=== PATIENT | female | born 1940 | race Caucasian/White ===

== ENCOUNTER → 2019-09-26 | Outpatient (CLI) | payer MEDICARE, BC ==
--- NOTE | 2019-09-26 11:13 | RADIOLOGY REPORT (SQ) ---
EXAM DESCRIPTION: CHEST PA/LATERAL IMAGES COMPLETED DATE/TIME: 09/26/2019 10:35 am REASON FOR STUDY: WHEEZING COMPARISON: None. EXAM PARAMETERS: NUMBER OF VIEWS: two views TECHNIQUE: Digital Frontal and Lateral radiographic views of the chest acquired. RADIATION DOSE: NA LIMITATIONS: none FINDINGS: LUNGS AND PLEURA: No opacities, masses or pneumothorax. No pleural effusion. MEDIASTINUM AND HILAR STRUCTURES: No masses or contour abnormalities. HEART AND VASCULAR STRUCTURES: Heart normal size. No evidence for failure. BONES: No acute findings. HARDWARE: None in the chest. OTHER: No other significant finding. IMPRESSION: NO SIGNIFICANT RADIOGRAPHIC FINDING IN THE CHEST. TECHNICAL DOCUMENTATION: JOB ID: [id number] 2010 [employer]- All Rights Reserved Reading location - IP/workstation name: [email or web address]
== END ==
LOC: OD 10:04
PROVIDERS: ATTEND Family Medicine
DX: R06.2 Wheezing (principal)
CPT/HCPCS: 71046

== ENCOUNTER 2019-10-11 15:28 | Inpatient (IN) | payer MEDICARE, BC ==
--- NOTE | 2019-10-11 16:26 | RADIOLOGY REPORT (SQ) ---
EXAM DESCRIPTION: HIP LEFT AP/LATERAL IMAGES COMPLETED DATE/TIME: 10/11/2019 4:03 pm REASON FOR STUDY: FALL WITH POSSIBLE DEFORMITY COMPARISON: None. NUMBER OF VIEWS: Two views. TECHNIQUE: AP pelvis and cross-table lateral view of the left hip. LIMITATIONS: None. FINDINGS: MINERALIZATION: Normal. LEFT HIP: No fracture or dislocation. No worrisome bone lesions. RIGHT HIP: No fracture or dislocation. Greater trochanteric in the is a pathic changes. No worrisom e bone lesions. PUBIS AND ISCHIUM: No fracture. PELVIS: No fracture. SACRUM: No fracture or dislocation. No worrisome bone lesions. LOWER LUMBAR SPINE: No fracture or dislocation. No worrisome bone lesions. No significant disc disea se. SOFT TISSUES: Surgical clips project over the right inguinal region. OTHER: No other significant finding. IMPRESSION: No identifiable acute osseous abnormality of the left hip. If there is persisting mac rn for occult fracture, consider CT. TECHNICAL DOCUMENTATION: JOB ID: [id number] 2010 [employer]- All Rights Reserved Reading location - IP/workstation name: [email or web address]
[2019-10-11] MEDS ORDERED: MORPHINE SULFATE 10 MG/ML INJ IV ONE ×2 (18:15→20:04)
--- NOTE | 2019-10-11 18:17 | ER Document Report ---
ED Hip Pain/Injury - General Chief Complaint: Hip Injury Stated Complaint: FALL/LEFT HIP PAIN Time Seen by Provider: 10/11/19 18:10 Mode of Arrival: Medic Information source: Patient Notes: 79-year-old woman presents to the emergency department history of a fall at home today. Apparently was assisting a moving Brie when she fell and her fell onto the mirror and the patient. She complained of pain in the left groin and hip area. She denies a loss of consciousness or head injury. EMS applied a pelvic sling and she received 100 mcg of fentanyl during the transport. Of pain medications by EMS - Related Data Allergies/Adverse Reactions: petrolatum,white [From Petroleum Jelly] Allergy (Verified 10/11/19 15:55) Past Medical History - Social History Smoking Status: Never Smoker Family History: Reviewed & Not Pertinent Patient has homicidal ideation: No Review of Systems - Review of Systems Notes: Constitutional: Negative for fever. HENT: Negative for sore throat. Eyes: Negative for visual changes. Cardiovascular: + Chest pain. Respiratory: Negative for shortness of breath. Gastrointestinal: Negative for abdominal pain, vomiting or diarrhea. Genitourinary: Negative for dysuria. Musculoskeletal: + Pain in the left inguinal region Skin: Negative for rash. Neurological: Negative for headaches, weakness or numbness. 10 point ROS negative except as marked above and in HPI. Physical Exam - Vital signs Vitals: Pulse Ox 89 L 10/11/19 15:48 - Notes Notes: PHYSICAL EXAMINATION: Physical Exam: General: Well-nourished well-developed 79-year-old woman severe pain HEENT: NC/AT, pupils equal round and reactive to light, MM moist,nares clear, oropharynx clear, airway patent Neck: supple, no adenopathy, no masses. Good range of motion Lungs: clear, no wheezing, no rales no rhonchi CVS: Regular rate and rhythm no murmur gallop or rub Abdomen: Soft, active, nontender, no masses, no hepatosplenomegaly Ext: No edema, clubbing or cyanosis. Neuro: Alert and responsive, moving all 4 extremities on command, cranial nerves intact, no focal findings Skin: Intact no open lesions, no rash PSYCH: Normal mood, normal affect. Course - Re-evaluation Re-evalutation: 10/11/19 19:41 Patient was found to have a left superior and left inferior ramus fracture, nondisplaced on the CT scan. Patient is continued to have severe pain and is received morphine and fentanyl IV. Discussed the findings with the patient and family, she is unable to tolerate moving due to severe pain., The orthopedist on-call Dr. Richardson contacted, this is a nonsurgical pelvis fracture. 10/11/19 19:54 Dr. Richardson the orthopedist is called and states even her inability to walk, and severe pain the patient should be admitted to the hospital, he will consult, patient may need to be sent to a long-term care facility for rehabilitation. - Vital Signs Vital signs: Temp Pulse Resp BP Pulse Ox 98.0 F 81 20 136/56 H 95 10/14/19 00:14 10/14/19 02:00 10/14/19 00:14 10/14/19 00:14 10/14/19 00:14 - Laboratory Result Diagrams: 10/11/19 15:48 10/13/19 12:08 Laboratory results interpreted by me: 10/11/19 10/11/19 10/12/19 15:48 18:15 01:31 Glucose 116 H Creatine Kinase CK-MB (CK-2) 5.09 H NT-Pro-B Natriuret Pep 1870 H Urine Blood SMALL H 10/12/19 10/12/19 10/12/19 01:31 07:29 07:29 Glucose Creatine Kinase 363 H 346 H CK-MB (CK-2) 4.87 H NT-Pro-B Natriuret Pep Urine Blood 10/12/19 12:45 Glucose Creatine Kinase 345 H CK-MB (CK-2) NT-Pro-B Natriuret Pep Urine Blood - Diagnostic Test Radiology reviewed: Image reviewed, Reports reviewed - X-ray left hip no fracture seen. CT abdomen and pelvis: Nondisplaced fracture of the left inferior and left superior pubic ramus CT chest: No acute intrathoracic findings, no rib fractures. Discharge - Discharge Clinical Impression: Fracture of left pelvis Qualifiers: Encounter type: initial encounter Pelvic bone location: pubis Fracture type: closed Fracture alignment: nondisplaced Qualified Code(s): S32.502A - Unspecified fracture of left pubis, initial encounter for closed fracture Fall Qualifiers: Encounter type: initial encounter Qualified Code(s): W19.XXXA - Unspecified fall, initial encounter Condition: Stable Disposition: ADMITTED INPATIENT Admitting Provider: Nathan (Hospitalist) Unit Admitted: Medical Floor
[2019-10-11 18:33] LABS: ABSOLUTE BASOPHILS # (AUTO) 0.1 10^3/uL (0.0-0.2); ABSOLUTE EOSINOPHILS # (AUTO) 0.3 10^3/uL (0.0-0.6); ABSOLUTE LYMPHOCYTES (AUTO) 2.6 10^3/uL (0.5-4.7); ABSOLUTE MONOCYTES (AUTO) 0.7 10^3/uL (0.1-1.4); ABSOLUTE NEUT (AUTO) 5.8 10^3/uL (1.7-8.2); BASOPHILS % (AUTO) 0.7 % (0-2); EOSINOPHILS % (AUTO) 2.8 % (0-6); HEMATOCRIT 38.3 % (36.0-47.0); LYMPHOCYTES % (AUTO) 27.1 % (13-45); MEAN CORPUSCULAR HEMOGLOBIN 31.2 pg (27.0-33.4); MEAN CORPUSCULAR VOLUME 92 fl (80-97); MONOCYTES % (AUTO) 7.4 % (3-13); PLATELET COUNT 268 10^3/uL (150-450); RED BLOOD COUNT 4.16 10^6/uL (3.72-5.28); RED CELL DISTRIBUTION WIDTH 13.8 % (11.5-14.0); TOTAL CELLS COUNTED % (AUTO) 100 %; WHITE BLOOD COUNT 9.4 10^3/uL (4.0-10.5)
[2019-10-11] MEDS ORDERED: FENTANYL CITRATE INJ/PF 100 MCG/2 ML AMPUL IV ONE (18:37)
[2019-10-11 18:46] LABS: ALBUMIN 3.9 g/dL (3.5-5.0); ALKALINE PHOSPHATASE 64 U/L (38-126); ASPARTATE AMINO TRANSFERASE 26 U/L (14-36); BILIRUBIN,TOTAL 0.4 mg/dL (0.2-1.3); BLOOD UREA NITROGEN 17 mg/dL (7-20); CALCIUM 9.1 mg/dL (8.4-10.2); GLUCOSE 116 mg/dL (75-110); POTASSIUM 4.1 mmol/L (3.6-5.0)
[2019-10-11 18:51] LABS: ANION GAP 5 (5-19); CARBON DIOXIDE 29 mmol/L (22-30); CHLORIDE 105 mmol/L (98-107)
[2019-10-11 19:22] LABS: APPEARANCE,URINE CLEAR; BILIRUBIN,URINE NEGATIVE (NEGATIVE); COLOR,URINE STRAW; GLUCOSE, URINE NEGATIVE (NEGATIVE); KETONES,URINE NEGATIVE (NEGATIVE); PROTEIN,URINE NEGATIVE (NEGATIVE); UROBILINOGEN,URINE NEGATIVE mg/dL (<2.0)
--- NOTE | 2019-10-11 19:27 | RADIOLOGY REPORT (SQ) ---
EXAM DESCRIPTION: CT ABD/PELVIS NO ORAL OR IV; CT CHEST WITHOUT IMAGES COMPLETED DATE/TIME: 10/11/2019 7:02 pm; 10/11/2019 7:01 pm REASON FOR STUDY: TRAUMA; Trauma COMPARISON: None. TECHNIQUE: CT scan of the chest performed without intravenous contrast using helical scanning techni que. Images reviewed with lung, soft tissue and bone windows. Reconstructed coronal and sagittal MPR images reviewed. All images stored on PACS. All CT scanners at this facility use dose modulation, iterative reconstruction, and/or weight based d osing when appropriate to reduce radiation dose to as low as reasonably achievable (ALARA). [facility]: Dose Right [facility]: CareDose [facility]: Dose Right [facility]: [place] 4D [facility]: [employer] RADIATION DOSE: mGy. LIMITATIONS: None. FINDINGS: AXILLAE: No adenopathy. CHEST WALL: No masses. No subcutaneous air. LUNGS: No focal airspace consolidation. Mild bibasilar dependent atelectasis. Few sub 4 mm pulmonar y nodules. No pneumothorax. PLEURA: No effusions. No calcifications. THYROID: No masses or significant asymmetry. HILAR AND MEDIASTINAL STRUCTURES: No identified masses or abnormal nodes. AORTA AND GREAT VESSELS: Mild calcified atherosclerotic changes of a mildly tortuous thoracic aorta. No aneurysm. HEART: No pericardial effusion. Mild aortic valvular calcification. Probable coronary stents. HARDWARE AND LIFELINES: None. BONES: No acute finding. Degenerative changes of the lower cervical spine. Surgical screw within th e right humeral head. OTHER: No other significant finding. IMPRESSION: No acute intrathoracic findings. COMPARISON: None. TECHNIQUE: CT scan of the abdomen and pelvis performed without intravenous contrast and withoutoral contrast using helical scanning technique with dynamic intravenous contrast injection. Images review ed with lung, soft tissue and bone windows. Reconstructed coronal and sagittal MPR images reviewed. All images stored on PACS. All CT scanners at this facility use dose modulation, iterative reconstruction, and/or weight based d osing when appropriate to reduce radiation dose to as low as reasonably achievable (ALARA). [facility]: Dose Right [facility]: SureCare [facility]: Dose Right [facility]: [employer] 4D [facility]: Smart [employer] RADIATION DOSE: mGy. LIMITATIONS: None. FINDINGS: LIVER: Subcentimeter hypodense focus within hepatic segment V, incompletely characterize, although likely represents a cyst. SPLEEN: Coarse splenic granuloma. Normal size. No focal lesions. PANCREAS: No masses. No significant calcifications. No adjacent inflammation or peripancreatic flui d collections. Pancreatic duct not dilated. GALLBLADDER: Nonvisualized. Likely surgically absent. ADRENAL GLANDS: No significant masses or asymmetry. RIGHT KIDNEY AND URETER: No solid masses. Focal right superior pole cortical scarring. Assessment l imited by lack of IV contrast. 5 mm left inferior pole nonobstructing nephrolith. Few additional no nobstructing punctate nephroliths. No hydronephrosis or hydroureter. LEFT KIDNEY AND URETER: No solid masses. Assessment limited by lack of IV contrast. No significant ca lcification. No hydronephrosis or hydroureter. AORTA AND VESSELS: Heavy calcified and non calcified atherosclerotic changes of the abdominal aorta w ithout aneurysmal dilatation. RETROPERITONEUM: No retroperitoneal adenopathy, hemorrhage or masses. APPENDIX: Not visualized. LARGE AND SMALL BOWEL: No dilatation. No masses. No wall thickening. ABDOMINAL WALL: 3.4 cm fat containing umbilical hernia. PERITONEAL CAVITY: No free air. No free fluid. No peritoneal implants or masses. PELVIS: Recent placement of a Stevenson catheter within a decompressed urinary bladder. Bilateral fat co ntaining inguinal hernias. Postsurgical changes of hysterectomy. BONES: Nondisplaced left superior and inferior pubic ramus fractures. OTHER: Surgical clips project over the right inguinal region. IMPRESSION: Nondisplaced left superior and inferior pubic ramus fractures. No acute intraabdominal/pelvic findings. TECHNICAL DOCUMENTATION: JOB ID: [id number] Quality ID # [id number]: Final reports with documentation of one or more dose reduction techniques (e.g., Au tomated exposure control, adjustment of the mA and/or kV according to patient size, use of iterative reconstruction technique) 2010 [employer]- All Rights Reserved Reading location - IP/workstation name: [email or web address]
--- NOTE | 2019-10-11 19:27 | RADIOLOGY REPORT (SQ) ---
EXAM DESCRIPTION: CT ABD/PELVIS NO ORAL OR IV; CT CHEST WITHOUT IMAGES COMPLETED DATE/TIME: 10/11/2019 7:02 pm; 10/11/2019 7:01 pm REASON FOR STUDY: TRAUMA; Trauma COMPARISON: None. TECHNIQUE: CT scan of the chest performed without intravenous contrast using helical scanning techni que. Images reviewed with lung, soft tissue and bone windows. Reconstructed coronal and sagittal MPR images reviewed. All images stored on PACS. All CT scanners at this facility use dose modulation, iterative reconstruction, and/or weight based d osing when appropriate to reduce radiation dose to as low as reasonably achievable (ALARA). [facility]: Dose Right [facility]: CareDose [facility]: Dose Right [facility]: [facility] 4D [facility]: [employer] RADIATION DOSE: mGy. LIMITATIONS: None. FINDINGS: AXILLAE: No adenopathy. CHEST WALL: No masses. No subcutaneous air. LUNGS: No focal airspace consolidation. Mild bibasilar dependent atelectasis. Few sub 4 mm pulmonar y nodules. No pneumothorax. PLEURA: No effusions. No calcifications. THYROID: No masses or significant asymmetry. HILAR AND MEDIASTINAL STRUCTURES: No identified masses or abnormal nodes. AORTA AND GREAT VESSELS: Mild calcified atherosclerotic changes of a mildly tortuous thoracic aorta. No aneurysm. HEART: No pericardial effusion. Mild aortic valvular calcification. Probable coronary stents. HARDWARE AND LIFELINES: None. BONES: No acute finding. Degenerative changes of the lower cervical spine. Surgical screw within th e right humeral head. OTHER: No other significant finding. IMPRESSION: No acute intrathoracic findings. COMPARISON: None. TECHNIQUE: CT scan of the abdomen and pelvis performed without intravenous contrast and withoutoral contrast using helical scanning technique with dynamic intravenous contrast injection. Images review ed with lung, soft tissue and bone windows. Reconstructed coronal and sagittal MPR images reviewed. All images stored on PACS. All CT scanners at this facility use dose modulation, iterative reconstruction, and/or weight based d osing when appropriate to reduce radiation dose to as low as reasonably achievable (ALARA). [facility]: Dose Right [facility]: SureCare [facility]: Dose Right [facility]: [employer] 4D [facility]: Smart [employer] RADIATION DOSE: mGy. LIMITATIONS: None. FINDINGS: LIVER: Subcentimeter hypodense focus within hepatic segment V, incompletely characterize, although likely represents a cyst. SPLEEN: Coarse splenic granuloma. Normal size. No focal lesions. PANCREAS: No masses. No significant calcifications. No adjacent inflammation or peripancreatic flui d collections. Pancreatic duct not dilated. GALLBLADDER: Nonvisualized. Likely surgically absent. ADRENAL GLANDS: No significant masses or asymmetry. RIGHT KIDNEY AND URETER: No solid masses. Focal right superior pole cortical scarring. Assessment l imited by lack of IV contrast. 5 mm left inferior pole nonobstructing nephrolith. Few additional no nobstructing punctate nephroliths. No hydronephrosis or hydroureter. LEFT KIDNEY AND URETER: No solid masses. Assessment limited by lack of IV contrast. No significant ca lcification. No hydronephrosis or hydroureter. AORTA AND VESSELS: Heavy calcified and non calcified atherosclerotic changes of the abdominal aorta w ithout aneurysmal dilatation. RETROPERITONEUM: No retroperitoneal adenopathy, hemorrhage or masses. APPENDIX: Not visualized. LARGE AND SMALL BOWEL: No dilatation. No masses. No wall thickening. ABDOMINAL WALL: 3.4 cm fat containing umbilical hernia. PERITONEAL CAVITY: No free air. No free fluid. No peritoneal implants or masses. PELVIS: Recent placement of a Stevenson catheter within a decompressed urinary bladder. Bilateral fat co ntaining inguinal hernias. Postsurgical changes of hysterectomy. BONES: Nondisplaced left superior and inferior pubic ramus fractures. OTHER: Surgical clips project over the right inguinal region. IMPRESSION: Nondisplaced left superior and inferior pubic ramus fractures. No acute intraabdominal/pelvic findings. TECHNICAL DOCUMENTATION: JOB ID: [id number] Quality ID # [id number]: Final reports with documentation of one or more dose reduction techniques (e.g., Au tomated exposure control, adjustment of the mA and/or kV according to patient size, use of iterative reconstruction technique) 2010 [employer]- All Rights Reserved Reading location - IP/workstation name: [email or web address]
[2019-10-11] MEDS ORDERED: MAG HYDROX/AL HYDROX/SIMETH SUSP 30 ML UDCUP PO PRN (20:01)
[2019-10-11] MEDS ORDERED: KETOROLAC TROMETHAMINE INJ/PF 30 MG/1 ML SDV IV PRN (20:01)
[2019-10-11] MEDS ORDERED: ACETAMINOPHEN 325 MG TABLET PO PRN (20:01)
[2019-10-11] MEDS ORDERED: ONDANSETRON HCL INJ/PF 4 MG/2 ML SDV IV ONE ×2 (20:04→21:20)
[2019-10-11] MEDS ORDERED: NORMAL SALINE 1000 ML 1,000 ML IV ONE (20:05)
[2019-10-11] MEDS: FENTANYL CITRATE INJ/PF 100 MCG/2 ML AMPUL IV PRN (22:27)
[2019-10-11] MEDS: HEPARIN SOD (PORCINE) 5,000 UNIT/ML 1 ML VIAL SUBCUT SCH (22:28)
[2019-10-12 02:06] LABS: CREATINE KINASE MB 5.09 ng/mL (<4.55)
[2019-10-12 02:08] LABS: TROPONIN I 0.2 ng/mL
[2019-10-12] MEDS ORDERED: ASPIRIN 81 MG TABLET, CHEWABLE PO ONE (02:35)
[2019-10-12] MEDS ORDERED: ASPIRIN 325 MG TABLET ONE (02:43)
[2019-10-12] MEDS ORDERED: SIMVASTATIN 10 MG TABLET PO ONE (02:45)
[2019-10-12] MEDS: FENTANYL CITRATE INJ/PF 100 MCG/2 ML AMPUL IV PRN (02:49)
[2019-10-12] MEDS: ONDANSETRON HCL INJ/PF 4 MG/2 ML SDV IV PRN ×2 (02:50→15:50)
--- NOTE | 2019-10-12 04:14 | PDOC H&P ---
History of Present Illness Admission Date/PCP: 10/11/19 20:10 MAXIME PRADO MD Patient complains of: Hip pain History of Present Illness: YE ALVAREZ is a 79 year old female with a past medical history of dyslipidemia, coronary artery disease and hypertension. Presents after a fall while moving furniture she landed on the floor without head injury but has had subsequent intractable pain unable to stand. She is brought to the emergency department by EMS and found to have a nondisplaced pelvic fracture. She received symptomatic management referred to the hospitalist for admission. She denies palpitations, chest pain, shortness of breath but admits nausea with vomiting x1. She denies recent change in [id number] or prescribed medication regiment and is otherwise felt well Past Medical History Cardiac Medical History: Reports: Myocardial Infarction, Hypertension Pulmonary Medical History: Reports: Asthma - seasonal, Pneumonia Musculoskeltal Medical History: Reports: Arthritis Social History Information Source: Patient, [facility] Records Lives with: Spouse/Significant other Smoking Status: Never Smoker Frequency of Alcohol Use: None Drugs: None - Advance Directive Resuscitation Status: Full Code Family History Family History: Hypertension Parental Family History Reviewed: Yes Children Family History Reviewed: Yes Sibling(s) Family History Reviewed.: Yes Medication/Allergy Home Medications: Aspirin [Aspirin 81 mg Chewable Tablet] 81 mg PO DAILY 10/11/19 Bisoprolol/Hydrochlorothiazide [Bisoprolol-Hctz 10-6.25 mg Tab] 0.5 tab PO QHS 10/11/19 Lisinopril [Prinivil] 10 mg PO QHS 10/11/19 Sertraline HCl 25 mg PO QHS 10/11/19 Simvastatin 20 mg PO QHS 10/11/19 Allergies/Adverse Reactions: petrolatum,white [From Petroleum Jelly] Allergy (Verified 10/11/19 15:55) Review of Systems Constitutional: ABSENT: chills, fever(s), headache(s), weight gain, weight loss Eyes: ABSENT: visual disturbances Ears: ABSENT: hearing changes Cardiovascular: ABSENT: chest pain, dyspnea on exertion, edema, orthropnea, palpitations Respiratory: ABSENT: cough, hemoptysis Gastrointestinal: ABSENT: abdominal pain, constipation, diarrhea, hematemesis, hematochezia, nausea, vomiting Genitourinary: ABSENT: dysuria, hematuria Musculoskeletal: ABSENT: joint swelling Integumentary: ABSENT: rash, wounds Neurological: ABSENT: abnormal gait, abnormal speech, confusion, dizziness, focal weakness, syncope Psychiatric: ABSENT: anxiety, depression, homidical ideation, suicidal ideation Endocrine: ABSENT: cold intolerance, heat intolerance, polydipsia, polyuria Hematologic/Lymphatic: ABSENT: easy bleeding, easy bruising Physical Exam Vital Signs: Temp Pulse Resp BP Pulse Ox 98.4 F 79 16 125/54 L 94 10/12/19 02:38 10/12/19 02:38 10/12/19 02:38 10/12/19 02:38 10/12/19 02:38 Intake & Output 10/10/19 10/11/19 10/12/19 11:59 11:59 11:59 Output Total 450 Balance -450 Weight 72.91 kg General appearance: PRESENT: cooperative, mild distress, well-developed, well- nourished Head exam: PRESENT: atraumatic, normocephalic Eye exam: PRESENT: conjunctiva pink, EOMI, PERRLA. ABSENT: scleral icterus Ear exam: PRESENT: normal external ear exam Mouth exam: PRESENT: moist, tongue midline Neck exam: ABSENT: carotid bruit, JVD, lymphadenopathy, thyromegaly Respiratory exam: PRESENT: clear to auscultation eros. ABSENT: rales, rhonchi, wheezes Cardiovascular exam: PRESENT: RRR. ABSENT: diastolic murmur, rubs, systolic murmur Pulses: PRESENT: normal dorsalis pedis pul Vascular exam: PRESENT: normal capillary refill GI/Abdominal exam: PRESENT: normal bowel sounds, soft. ABSENT: distended, guarding, mass, organolmegaly, rebound, tenderness Rectal exam: PRESENT: deferred Extremities exam: PRESENT: full ROM, tenderness - With hip flexion. ABSENT: calf tenderness, clubbing, pedal edema, +1 edema, +2 edema, other Musculoskeletal exam: PRESENT: full ROM - Limited by pain Neurological exam: PRESENT: alert, awake, oriented to person, oriented to place, oriented to time, oriented to situation, CN II-XII grossly intact. ABSENT: motor sensory deficit Psychiatric exam: PRESENT: appropriate affect, normal mood. ABSENT: homicidal ideation, suicidal ideation Skin exam: PRESENT: dry, intact, warm. ABSENT: cyanosis, rash Results Laboratory Results: 10/11/19 15:48 10/11/19 15:48 10/11/19 10/11/19 10/11/19 15:48 15:48 18:15 WBC 9.4 RBC 4.16 Hgb 13.0 Hct 38.3 MCV 92 MCH 31.2 MCHC 34.0 RDW 13.8 Plt Count 268 Seg Neutrophils % 62.0 Sodium 139.0 Potassium 4.1 Chloride 105 Carbon Dioxide 29 Anion Gap 5 BUN 17 Creatinine 0.86 Est GFR ( Amer) > 60 Glucose 116 H Calcium 9.1 Total Bilirubin 0.4 AST 26 Alkaline Phosphatase 64 Total Protein 7.0 Albumin 3.9 Urine Color STRAW Urine Appearance CLEAR Urine pH 6.0 Ur Specific [place] 1.010 Urine Protein NEGATIVE Urine Glucose (UA) NEGATIVE Urine Ketones NEGATIVE Urine Blood SMALL H Urine RBC (Auto) 1 10/12/19 10/12/19 01:31 01:31 Creatine Kinase 363 H CK-MB (CK-2) 5.09 H Troponin I 0.200 NT-Pro-B Natriuret Pep 1870 H Impressions: Abdomen/Pelvis CT 10/11/19 00:00 IMPRESSION: No acute intrathoracic findings. IMPRESSION: Nondisplaced left superior and inferior pubic ramus fractures. No acute intraabdominal/pelvic findings. Hip X-Ray 10/11/19 00:00 IMPRESSION: No identifiable acute osseous abnormality of the left hip. If there is persisting concern for occult fracture, consider CT. Chest CT 10/11/19 18:40 IMPRESSION: No acute intrathoracic findings. IMPRESSION: Nondisplaced left superior and inferior pubic ramus fractures. No acute intraabdominal/pelvic findings. Assessment and Plan - Diagnosis (1) Fracture of left pelvis Qualifiers: Encounter type: initial encounter Pelvic bone location: pubis Fracture type: closed Fracture alignment: nondisplaced Qualified Code(s): S32.502A - Unspecified fracture of left pubis, initial encounter for closed fracture Is this a current diagnosis for this admission?: Yes Plan: Symptomatic management, follow-up orthopedic consult and physical therapy evaluation (2) Elevated troponin Is this a current diagnosis for this admission?: Yes Plan: Likely secondary to fall with muscle injury, no EKG changes no additional symptoms of shortness of breath, chest pain, nausea vomiting, diaphoresis or palpitations. However aspirin and Lipitor initiated follow-up serial cardiac enzymes (3) Gait disorder Is this a current diagnosis for this admission?: Yes Plan: Follow-up physical therapy evaluation (4) Fall Qualifiers: Encounter type: initial encounter Qualified Code(s): W19.XXXA - Unspecified fall, initial encounter Is this a current diagnosis for this admission?: Yes Plan: Follow physical therapy evaluation - Time Time Spent with patient: 25-34 minutes - Inpatient Certification Medical Necessity: Need Close Monitoring Due to Risk of Patient Decompensation
[2019-10-12] MEDS: HEPARIN SOD (PORCINE) 5,000 UNIT/ML 1 ML VIAL SUBCUT SCH ×3 (05:47→21:17)
[2019-10-12 08:08] LABS: CREATINE KINASE MB 4.87 ng/mL (<4.55)
[2019-10-12 08:16] LABS: TROPONIN I 0.247 ng/mL
[2019-10-12] MEDS ORDERED: MORPHINE SULFATE 10 MG/ML INJ IV PRN (08:36)
[2019-10-12] MEDS ORDERED: OXYCODONE-ACETAMINOPHEN 5-325 MG TABLET PO PRN (08:37)
[2019-10-12] MEDS: DOCUSATE SODIUM 100 MG CAPSULE PO SCH ×2 (10:16→18:22)
--- NOTE | 2019-10-12 11:16 | EKG REPORT ---
SEVERITY:- NORMAL ECG - SINUS RHYTHM : Confirmed by: Michelle Gibbs 12-Oct-2019 11:14:33
--- NOTE | 2019-10-12 11:23 | PDOC CONSULTATION ---
Consultation Consult Date: 10/12/19 Attending physician:: MATT QUIJANO Provider Consulted: CHAD LEIGH Consult reason:: Pubic ramus fracture History of Present Illness Admission Date/PCP: 10/11/19 20:10 MAXIME PRADO MD Patient complains of: Hip pain and inability to ambulate History of Present Illness: YE ALVAREZ is a 79 year old female who was attempting to move a large, 80 pound mirror at home. The mirror began to fall on her and as she fell both the mirror and her fell on top of her. She was brought to the hospital by ambulance complaining of pain and inability to ambulate. Radiographic examination demonstrated nondisplaced fractures of the pubic ramus. Past Medical History Cardiac Medical History: Reports: Myocardial Infarction, Hypertension Pulmonary Medical History: Reports: Asthma - seasonal, Pneumonia Musculoskeltal Medical History: Reports: Arthritis Social History Lives with: Spouse/Significant other Smoking Status: Never Smoker Frequency of Alcohol Use: None Drugs: None - Advance Directive Resuscitation Status: Full Code Family History Family History: Hypertension Parental Family History Reviewed: Yes Children Family History Reviewed: No Sibling(s) Family History Reviewed.: Unknown Medication/Allergy Home Medications: Lisinopril [Prinivil] 10 mg PO QHS 10/11/19 Sertraline HCl 25 mg PO QHS 10/11/19 Simvastatin 20 mg PO QHS 10/11/19 Aspirin [Ecotrin 81 mg EC Tablet] 81 mg PO DAILY 10/12/19 Bisoprolol 15 mg PO DAILY 10/12/19 Allergies/Adverse Reactions: petrolatum,white [From Petroleum Jelly] Allergy (Verified 10/11/19 15:55) Review of Systems All systems: reviewed and no additional remarkable complaints except as stated - As per HPI Physical Exam Vital Signs: Temp Pulse Resp BP Pulse Ox 98.1 F 78 18 129/89 H 91 L 10/12/19 07:31 10/12/19 07:31 10/12/19 07:31 10/12/19 07:31 10/12/19 07:31 Intake & Output 10/11/19 10/12/19 10/13/19 06:59 06:59 06:59 Intake Total 1000 Output Total 450 Balance -450 1000 Weight 72.9 kg General appearance: PRESENT: no acute distress, well-developed, well-nourished Head exam: PRESENT: atraumatic, normocephalic Eye exam: PRESENT: EOMI, PERRLA Mouth exam: PRESENT: moist, tongue midline Neck exam: PRESENT: full ROM Respiratory exam: PRESENT: clear to auscultation eros. ABSENT: rales, rhonchi, wheezes Cardiovascular exam: PRESENT: RRR. ABSENT: diastolic murmur, rubs, systolic m urmur Pulses: PRESENT: +2 pedal pulses bilateral GI/Abdominal exam: PRESENT: soft Rectal exam: PRESENT: deferred Musculoskeletal exam: PRESENT: other - There is full range of motion of both hips without discomfort. There is discomfort with palpation of the pubic ramus. The pelvis is stable to compression. Sensation is intact in both lower extremities. Results Laboratory Results: 10/11/19 15:48 10/11/19 15:48 10/11/19 10/11/19 10/11/19 15:48 15:48 18:15 WBC 9.4 RBC 4.16 Hgb 13.0 Hct 38.3 MCV 92 MCH 31.2 MCHC 34.0 RDW 13.8 Plt Count 268 Seg Neutrophils % 62.0 Sodium 139.0 Potassium 4.1 Chloride 105 Carbon Dioxide 29 Anion Gap 5 BUN 17 Creatinine 0.86 Est GFR ( Amer) > 60 Glucose 116 H Calcium 9.1 Total Bilirubin 0.4 AST 26 Alkaline Phosphatase 64 Total Protein 7.0 Albumin 3.9 Urine Color STRAW Urine Appearance CLEAR Urine pH 6.0 Ur Specific [place] 1.010 Urine Protein NEGATIVE Urine Glucose (UA) NEGATIVE Urine Ketones NEGATIVE Urine Blood SMALL H Urine RBC (Auto) 1 10/12/19 10/12/19 10/12/19 01:31 01:31 07:29 Creatine Kinase 363 H 346 H CK-MB (CK-2) 5.09 H Troponin I 0.200 NT-Pro-B Natriuret Pep 1870 H 10/12/19 07:29 Creatine Kinase CK-MB (CK-2) 4.87 H Troponin I 0.247 NT-Pro-B Natriuret Pep Impressions: Abdomen/Pelvis CT 10/11/19 00:00 IMPRESSION: No acute intrathoracic findings. IMPRESSION: Nondisplaced left superior and inferior pubic ramus fractures. No acute intraabdominal/pelvic findings. Hip X-Ray 10/11/19 00:00 IMPRESSION: No identifiable acute osseous abnormality of the left hip. If there is persisting concern for occult fracture, consider CT. Chest CT 10/11/19 18:40 IMPRESSION: No acute intrathoracic findings. IMPRESSION: Nondisplaced left superior and inferior pubic ramus fractures. No acute intraabdominal/pelvic findings. Assessment & Plan - Diagnosis (1) Fracture of pubic ramus Qualifiers: Encounter type: initial encounter Fracture type: closed Laterality: unspecified laterality Qualified Code(s): S32.599A - Other specified fracture of unspecified pubis, initial encounter for closed fracture Is this a current diagnosis for this admission?: Yes - Time Time Spent: 30 to 50 Minutes Anticipated discharge: SNF - Plan Summary Plan Summary: The patient has sustained nondisplaced fractures of the pubic ramus. I have discussed with the patient that treatment for this injury is nonoperative with weightbearing as tolerated with assistive device. I have ordered a consultation by physical physical therapy for ambulation training weightbearing as tolerated with assist device.
[2019-10-12 13:40] LABS: CREATINE KINASE MB 4.02 ng/mL (<4.55)
[2019-10-12 13:45] LABS: TROPONIN I 0.174 ng/mL
--- NOTE | 2019-10-12 14:30 | PDOC PROGRESS REPORT ---
Subjective Progress Note for:: 10/12/19 Subjective:: Patient is doing okay. States that she gets nauseous after taking fentanyl. Fentanyl will be discontinued. Started patient on morphine and Percocet as needed. Reason For Visit: PELVIC FRACTURE Physical Exam Vital Signs: Temp Pulse Resp BP Pulse Ox 98.1 F 100 18 130/59 H 90 L 10/12/19 12:00 10/12/19 12:00 10/12/19 12:00 10/12/19 12:00 10/12/19 12:00 Intake & Output 10/11/19 10/12/19 10/13/19 06:59 06:59 06:59 Intake Total 1510 Output Total 450 525 Balance -450 985 Weight 72.9 kg General appearance: PRESENT: no acute distress, cooperative Neck exam: ABSENT: JVD Respiratory exam: PRESENT: clear to auscultation eros, symmetrical, unlabored. ABSENT: tachypnea Musculoskeletal exam: PRESENT: deformity, tenderness. ABSENT: dislocation, full ROM, normal inspection Neurological exam: PRESENT: alert, awake, oriented to person, oriented to place, oriented to time Results Laboratory Results: 10/11/19 15:48 10/11/19 15:48 10/11/19 10/11/19 10/11/19 15:48 15:48 18:15 WBC 9.4 RBC 4.16 Hgb 13.0 Hct 38.3 MCV 92 MCH 31.2 MCHC 34.0 RDW 13.8 Plt Count 268 Seg Neutrophils % 62.0 Sodium 139.0 Potassium 4.1 Chloride 105 Carbon Dioxide 29 Anion Gap 5 BUN 17 Creatinine 0.86 Est GFR ( Amer) > 60 Glucose 116 H Calcium 9.1 Total Bilirubin 0.4 AST 26 Alkaline Phosphatase 64 Total Protein 7.0 Albumin 3.9 Urine Color STRAW Urine Appearance CLEAR Urine pH 6.0 Ur Specific [place] 1.010 Urine Protein NEGATIVE Urine Glucose (UA) NEGATIVE Urine Ketones NEGATIVE Urine Blood SMALL H Urine RBC (Auto) 1 10/12/19 10/12/19 10/12/19 01:31 01:31 07:29 Creatine Kinase 363 H 346 H CK-MB (CK-2) 5.09 H Troponin I 0.200 NT-Pro-B Natriuret Pep 1870 H 10/12/19 10/12/19 10/12/19 07:29 12:45 12:45 Creatine Kinase 345 H CK-MB (CK-2) 4.87 H 4.02 Troponin I 0.247 0.174 NT-Pro-B Natriuret Pep Impressions: Abdomen/Pelvis CT 10/11/19 00:00 IMPRESSION: No acute intrathoracic findings. IMPRESSION: Nondisplaced left superior and inferior pubic ramus fractures. No acute intraabdominal/pelvic findings. Hip X-Ray 10/11/19 00:00 IMPRESSION: No identifiable acute osseous abnormality of the left hip. If there is persisting concern for occult fracture, consider CT. Chest CT 10/11/19 18:40 IMPRESSION: No acute intrathoracic findings. IMPRESSION: Nondisplaced left superior and inferior pubic ramus fractures. No acute intraabdominal/pelvic findings. Assessment and Plan - Diagnosis (1) Fracture of pubic ramus Qualifiers: Encounter type: initial encounter Fracture type: closed Laterality: unspecified laterality Qualified Code(s): S32.599A - Other specified fracture of unspecified pubis, initial encounter for closed fracture Is this a current diagnosis for this admission?: Yes Plan: No left side involved. Patient was evaluated by orthopedics who states that no operation is needed. Physical therapy to follow. Weightbearing as tolerated. We will substitute fentanyl for morphine for breakthrough and Percocet as needed. (2) Elevated troponin Is this a current diagnosis for this admission?: Yes Plan: I agree that this is likely secondary to fall and mild rhabdomyolysis subsequently. CK is mildly elevated. Troponin seems to have peaked at 0.247 and trended down. EKG shows no ischemic changes whatsoever. (3) Fall Qualifiers: Encounter type: initial encounter Qualified Code(s): W19.XXXA - Unspecified fall, initial encounter Is this a current diagnosis for this admission?: Yes Plan: Follow physical therapy evaluation (4) Gait disorder Is this a current diagnosis for this admission?: Yes Plan: Follow-up physical therapy evaluation - Time Time Spent with patient: Less than 15 minutes
--- NOTE | 2019-10-12 14:57 | Progress Note ---
Provider Note Provider Note: Preliminary Note Images reviewed. Stable left rami fracture. Patient may weight bear as tolerated. Encourage OOB with PT.
[2019-10-12] MEDS ORDERED: NORMAL SALINE 1000 ML 1,000 ML IV PRN (18:50)
[2019-10-12] MEDS: SIMVASTATIN 10 MG TABLET PO SCH (21:17)
[2019-10-12] MEDS: SERTRALINE HCL 50 MG TABLET PO SCH (21:17)
[2019-10-12] MEDS: LISINOPRIL 10 MG TABLET PO SCH (21:18)
[2019-10-12] MEDS: TRAMADOL HCL 50 MG TABLET PO PRN (21:21)
[2019-10-12] MEDS ORDERED: BISOPROLOL PO SCH (22:00)
[2019-10-12] MEDS ORDERED: [UNRECOGNIZED DRUG - OTHER] PO SCH (22:00)
[2019-10-12] MEDS ORDERED: HYDROCHLOROTHIAZIDE PO SCH (22:00)
[2019-10-13] MEDS: TRAMADOL HCL 50 MG TABLET PO PRN (05:55)
[2019-10-13] MEDS: HEPARIN SOD (PORCINE) 5,000 UNIT/ML 1 ML VIAL SUBCUT SCH ×3 (05:56→22:03)
[2019-10-13] MEDS: ONDANSETRON HCL INJ/PF 4 MG/2 ML SDV IV PRN (10:22)
[2019-10-13] MEDS ORDERED: PROMETHAZINE HCL INJ 25 MG/1 ML VIAL IV PRN (11:14)
--- NOTE | 2019-10-13 11:30 | PDOC PROGRESS REPORT ---
Subjective Progress Note for:: 10/13/19 Subjective:: Patient has several episodes of vomiting again since yesterday. She vomited this morning as well. Patient states that her nausea and vomiting did not start until she was in the hospital and has not been happy at home. She strongly feels that is due to the medication she takes here as she states that her pain meds make her nauseous. However, the tramadol was tolerable did not cause any nausea. Patient's daughter states that a lot of people in the family are quite sensitive to narcotic meds. Patient denies any abdominal pain, hematemesis, hematochezia, melena. Reason For Visit: PELVIC FRACTURE Physical Exam Vital Signs: Temp Pulse Resp BP Pulse Ox 98.4 F 85 15 139/62 H 95 10/13/19 07:32 10/13/19 07:32 10/13/19 07:32 10/13/19 07:32 10/13/19 07:32 Intake & Output 10/12/19 10/13/19 10/14/19 06:59 06:59 06:59 Intake Total 1750 Output Total 450 1125 Balance -450 625 Weight 72.9 kg 72.9 kg General appearance: PRESENT: no acute distress, cooperative Neck exam: ABSENT: JVD Respiratory exam: PRESENT: symmetrical, unlabored. ABSENT: accessory muscle use, retraction, tachypnea GI/Abdominal exam: PRESENT: normal bowel sounds, soft. ABSENT: ascites, distended, firm, guarding, mass, rebound, rigid, tenderness Musculoskeletal exam: ABSENT: ambulatory Neurological exam: PRESENT: alert, awake, oriented to person, oriented to place, oriented to time Psychiatric exam: PRESENT: anxious. ABSENT: agitated Focused psych exam: ABSENT: pressured speech Results Laboratory Results: 10/11/19 15:48 10/11/19 15:48 10/12/19 10/12/19 10/12/19 01:31 01:31 07:29 Creatine Kinase 363 H 346 H CK-MB (CK-2) 5.09 H Troponin I 0.200 NT-Pro-B Natriuret Pep 1870 H 10/12/19 10/12/19 10/12/19 07:29 12:45 12:45 Creatine Kinase 345 H CK-MB (CK-2) 4.87 H 4.02 Troponin I 0.247 0.174 NT-Pro-B Natriuret Pep Impressions: Abdomen/Pelvis CT 10/11/19 00:00 IMPRESSION: No acute intrathoracic findings. IMPRESSION: Nondisplaced left superior and inferior pubic ramus fractures. No acute intraabdominal/pelvic findings. Hip X-Ray 10/11/19 00:00 IMPRESSION: No identifiable acute osseous abnormality of the left hip. If there is persisting concern for occult fracture, consider CT. Chest CT 10/11/19 18:40 IMPRESSION: No acute intrathoracic findings. IMPRESSION: Nondisplaced left superior and inferior pubic ramus fractures. No acute intraabdominal/pelvic findings. Assessment and Plan - Diagnosis (1) Fracture of pubic ramus Qualifiers: Encounter type: initial encounter Fracture type: closed Laterality: uns pecified laterality Qualified Code(s): S32.599A - Other specified fracture of unspecified pubis, initial encounter for closed fracture Is this a current diagnosis for this admission?: Yes Plan: No left side involved. Patient was evaluated by orthopedics who states that no operation is needed. Weightbearing as tolerated. She was unfortunately not able to do much with physical therapy today and she will require SNF for short-term rehab. Limited options for pain control as patient seems to get very nauseated whenever she takes any narcotic/opioid medication. I have switched her meds a couple times now. I will stop all opioid medications while continue tramadol which she has tolerated. I will add gentle doses of IV Toradol as needed for breakthrough pain. GI prophylaxis with pepcid. Continue daily PT (2) Nausea & vomiting Qualifiers: Vomiting type: unspecified Vomiting Intractability: unspecified Qualified Code(s): R11.2 - Nausea with vomiting, unspecified Is this a current diagnosis for this admission?: Yes Plan: Patient seems to have severe nausea with some episodes of vomiting whenever she takes any narcotic medication. Daughter states that people in her family are very sensitive to narcotics. Nausea & vomiting seem to have only started while patient was in the hospital and has occurred after receiving morphine, fentanyl and Percocet. I have adjusted as regimen as demonstrated above and will use only non-opioid alternatives for pain control. Continue Zofran and add IV Phenergan. Check electrolytes. (3) Elevated troponin Is this a current diagnosis for this admission?: Yes Plan: I agree that this is likely secondary to fall and mild rhabdomyolysis subsequen tly. CK is mildly elevated. Troponin seems to have peaked at 0.247 and trended down. EKG shows no ischemic changes whatsoever. (4) Fall Qualifiers: Encounter type: initial encounter Qualified Code(s): W19.XXXA - Unspecified fall, initial encounter Is this a current diagnosis for this admission?: Yes Plan: PT (5) Gait disorder Is this a current diagnosis for this admission?: Yes - Time Time Spent with patient: 15-24 minutes
[2019-10-13] MEDS: KETOROLAC TROMETHAMINE INJ/PF 30 MG/1 ML SDV IV PRN (11:34)
[2019-10-13] MEDS: DOCUSATE SODIUM 100 MG CAPSULE PO SCH ×2 (11:35→17:58)
[2019-10-13] MEDS: ASPIRIN 81 MG TABLET, CHEWABLE PO SCH (11:35)
[2019-10-13] MEDS: FAMOTIDINE 20 MG TABLET PO SCH ×2 (11:35→22:04)
[2019-10-13 13:10] LABS: ANION GAP 5 (5-19); BLOOD UREA NITROGEN 15 mg/dL (7-20); CALCIUM 9.2 mg/dL (8.4-10.2); CARBON DIOXIDE 29 mmol/L (22-30); CHLORIDE 103 mmol/L (98-107); GLUCOSE 121 mg/dL (75-110); POTASSIUM 4.3 mmol/L (3.6-5.0)
[2019-10-13] MEDS: SERTRALINE HCL 50 MG TABLET PO SCH (22:03)
[2019-10-13] MEDS: SIMVASTATIN 10 MG TABLET PO SCH (22:04)
[2019-10-13] MEDS: LISINOPRIL 10 MG TABLET PO SCH (22:04)
[2019-10-14 05:14] LABS: HEMATOCRIT 36.5 % (36.0-47.0); HEMOGLOBIN 12.3 g/dL (12.0-15.5); MEAN CORPUSCULAR HEMOGLOBIN 31.7 pg (27.0-33.4); MEAN CORPUSCULAR HGB CONC 33.6 g/dL (32.0-36.0); MEAN CORPUSCULAR VOLUME 94 fl (80-97); PLATELET COUNT 209 10^3/uL (150-450); RED BLOOD COUNT 3.87 10^6/uL (3.72-5.28); RED CELL DISTRIBUTION WIDTH 13.7 % (11.5-14.0); WHITE BLOOD COUNT 8.2 10^3/uL (4.0-10.5)
[2019-10-14 05:30] LABS: ANION GAP 6 (5-19); BLOOD UREA NITROGEN 20 mg/dL (7-20); CALCIUM 8.6 mg/dL (8.4-10.2); CARBON DIOXIDE 29 mmol/L (22-30); CHLORIDE 102 mmol/L (98-107); GLUCOSE 108 mg/dL (75-110); POTASSIUM 4.5 mmol/L (3.6-5.0)
[2019-10-14] MEDS: HEPARIN SOD (PORCINE) 5,000 UNIT/ML 1 ML VIAL SUBCUT SCH ×3 (06:09→21:04)
[2019-10-14] MEDS: KETOROLAC TROMETHAMINE INJ/PF 30 MG/1 ML SDV IV PRN ×2 (08:35→21:04)
[2019-10-14] MEDS: ASPIRIN 81 MG TABLET, CHEWABLE PO SCH (09:18)
[2019-10-14] MEDS: DOCUSATE SODIUM 100 MG CAPSULE PO SCH ×2 (09:18→17:25)
[2019-10-14] MEDS: FAMOTIDINE 20 MG TABLET PO SCH ×2 (09:18→21:05)
--- NOTE | 2019-10-14 15:28 | PDOC PROGRESS REPORT ---
Subjective Progress Note for:: 10/14/19 Subjective:: Patient just finished working with physical therapy. She states that she did better today. She still had some pain. She did ask about wheezing. She states that she has an albuterol inhaler at home but was worried because lately she has been wheezing. Reason For Visit: PELVIC FRACTURE Physical Exam Vital Signs: Temp Pulse Resp BP Pulse Ox 98.6 F 77 18 135/60 H 95 10/14/19 11:00 10/14/19 13:43 10/14/19 11:00 10/14/19 11:00 10/14/19 11:00 Intake & Output 10/13/19 10/14/19 10/15/19 06:59 06:59 06:59 Intake Total 1750 360 680 Output Total 1125 735 450 Balance 625 -375 230 Weight 72.9 kg 72.9 kg General appearance: PRESENT: cooperative, mild distress, well-developed Head exam: PRESENT: atraumatic, normocephalic Eye exam: PRESENT: conjunctiva pink. ABSENT: scleral icterus Ear exam: PRESENT: normal external ear exam. ABSENT: bleeding, drainage Mouth exam: PRESENT: moist, tongue midline Respiratory exam: PRESENT: clear to auscultation eros, symmetrical, unlabored. ABSENT: accessory muscle use, rales, rhonchi, tachypnea, wheezes Cardiovascular exam: PRESENT: RRR, +S1, +S2 GI/Abdominal exam: PRESENT: normal bowel sounds, soft. ABSENT: distended, guarding, tenderness Rectal exam: PRESENT: deferred Extremities exam: ABSENT: pedal edema Neurological exam: PRESENT: alert, awake, oriented to person, oriented to place, oriented to time, oriented to situation, CN II-XII grossly intact. ABSENT: altered Psychiatric exam: PRESENT: flat affect. ABSENT: agitated, anxious Focused psych exam: ABSENT: delusional, paranoid, restlessness Skin exam: PRESENT: dry, normal color, warm. ABSENT: rash Results Laboratory Results: 10/14/19 04:47 10/14/19 04:47 10/14/19 10/14/19 04:47 04:47 WBC 8.2 RBC 3.87 Hgb 12.3 Hct 36.5 MCV 94 MCH 31.7 MCHC 33.6 RDW 13.7 Plt Count 209 Sodium 136.8 L Potassium 4.5 Chloride 102 Carbon Dioxide 29 Anion Gap 6 BUN 20 Creatinine 0.76 Est GFR ( Amer) > 60 Glucose 108 Calcium 8.6 Magnesium 1.9 10/12/19 10/12/19 10/12/19 01:31 01:31 07:29 Creatine Kinase 363 H 346 H CK-MB (CK-2) 5.09 H Troponin I 0.200 NT-Pro-B Natriuret Pep 1870 H 10/12/19 10/12/19 10/12/19 07:29 12:45 12:45 Creatine Kinase 345 H CK-MB (CK-2) 4.87 H 4.02 Troponin I 0.247 0.174 NT-Pro-B Natriuret Pep Impressions: Abdomen/Pelvis CT 10/11/19 00:00 IMPRESSION: No acute intrathoracic findings. IMPRESSION: Nondisplaced left superior and inferior pubic ramus fractures. No acute intraabdominal/pelvic findings. Hip X-Ray 10/11/19 00:00 IMPRESSION: No identifiable acute osseous abnormality of the left hip. If there is persisting concern for occult fracture, consider CT. Chest CT 10/11/19 18:40 IMPRESSION: No acute intrathoracic findings. IMPRESSION: Nondisplaced left superior and inferior pubic ramus fractures. No acute intraabdominal/pelvic findings. Assessment and Plan - Diagnosis (1) Fracture of pubic ramus Qualifiers: Encounter type: initial encounter Fracture type: closed Laterality: unspecified laterality Qualified Code(s): S32.599A - Other specified fracture of unspecified pubis, initial encounter for closed fracture Is this a current diagnosis for this admission?: Yes Plan: No left side involved. Patient was evaluated by orthopedics who states that no operation is needed. Weightbearing as tolerated. She was unfortunately not able to do much with physical therapy today and she will require SNF for short-term rehab. Limited options for pain control as patient seems to get very nauseated whenever she takes any narcotic/opioid medication. I have switched her meds a couple times now. I will stop all opioid medications while continue tramadol which she has tolerated. I will add gentle doses of IV Toradol as needed for breakthrough pain. GI prophylaxis with pepcid. Continue daily PT 10/14/2019 Awaiting COVID screening. Patient has been accepted at [facility]. Continue analgesia and physical therapy (2) Nausea & vomiting Qualifiers: Vomiting type: unspecified Vomiting Intractability: unspecified Qualified Code(s): R11.2 - Nausea with vomiting, unspecified Is this a current diagnosis for this admission?: Yes Plan: Patient seems to have severe nausea with some episodes of vomiting whenever she takes any narcotic medication. Daughter states that people in her family are very sensitive to narcotics. Nausea & vomiting seem to have only started while patient was in the hospital and has occurred after receiving morphine, fentanyl and Percocet. I have adjusted as regimen as demonstrated above and will use only non-opioid alternatives for pain control. Continue Zofran and add IV Phenergan. Check electrolytes. 10/14/2019 The intravenous Toradol and Phenergan seem to be working well. Continue same. (3) Elevated troponin Is this a current diagnosis for this admission?: Yes Plan: I agree that this is likely secondary to fall and mild rhabdomyolysis subsequently. CK is mildly elevated. Troponin seems to have peaked at 0.247 and trended down. EKG shows no ischemic changes whatsoever. 10/14/2019 Troponin is trending down. Very likely noncardiac in origin. (4) Fall Qualifiers: Encounter type: initial encounter Qualified Code(s): W19.XXXA - Unspecified fall, initial encounter Is this a current diagnosis for this admission?: Yes Plan: PT 10/14/2019 Patient will need gait training and strengthening. Accepted at [facility]. (5) Gait disorder Is this a current diagnosis for this admission?: Yes Plan: Follow-up physical therapy evaluation 10/14/2019 Secondary to fracture. Continue aggressive therapy at intermediate facility. - Time Time Spent with patient: 15-24 minutes Medications reviewed and adjusted accordingly: Yes Anticipated discharge: SNF Within: within 24 hours
[2019-10-14] MEDS: TRAMADOL HCL 50 MG TABLET PO PRN (17:25)
[2019-10-14] MEDS: LISINOPRIL 10 MG TABLET PO SCH (21:05)
[2019-10-14] MEDS: SERTRALINE HCL 50 MG TABLET PO SCH (21:05)
[2019-10-14] MEDS: SIMVASTATIN 10 MG TABLET PO SCH (21:05)
[2019-10-15] MEDS: HEPARIN SOD (PORCINE) 5,000 UNIT/ML 1 ML VIAL SUBCUT SCH (05:52)
[2019-10-15] MEDS: FAMOTIDINE 20 MG TABLET PO SCH (09:15)
[2019-10-15] MEDS: TRAMADOL HCL 50 MG TABLET PO PRN (09:15)
[2019-10-15] MEDS: DOCUSATE SODIUM 100 MG CAPSULE PO SCH (09:15)
[2019-10-15] MEDS: ASPIRIN 81 MG TABLET, CHEWABLE PO SCH (09:16)
[2019-10-15] MEDS ORDERED: FLUTICASONE/VILANTEROL 100-25 MCG/DOSE IH SCH (10:00)
--- NOTE | 2019-10-15 10:47 | PDOC TRANSFER SUMMARY ---
Impression - Admit/DC Date/PCP Admission Date/Primary Care Provider: 10/12/19 13:53 MAXIME PRADO MD Discharge Date: 10/15/19 - Discharge Diagnosis (1) Fracture of pubic ramus Is this a current diagnosis for this admission?: Yes (2) Nausea & vomiting Is this a current diagnosis for this admission?: Yes (3) Elevated troponin Is this a current diagnosis for this admission?: Yes (4) Fall Is this a current diagnosis for this admission?: Yes (5) Gait disorder Is this a current diagnosis for this admission?: Yes (6) Asthma Is this a current diagnosis for this admission?: Yes - Assessment Summary: The patient has a bed at [facility]. Her COVID screen was negative. She will benefit greatly from aggressive physical therapy. - Additional Information Resuscitation Status: Full Code Discharge Diet: Cardiac Discharge Activity: Activity As Tolerated, Other - Per physical therapy recommendation Referrals: MAXIME PRADO MD [Primary Care Provider] - Follow up as needed Prescriptions: Tramadol HCl [Ultram 50 mg Tablet] 50 mg PO Q6HP PRN #15 tablet PRN Reason: Home Medications: Lisinopril [Prinivil] 10 mg PO QHS 10/11/19 Sertraline HCl 25 mg PO QHS 10/11/19 Simvastatin 20 mg PO QHS 10/11/19 Aspirin [Ecotrin 81 mg EC Tablet] 81 mg PO DAILY 10/12/19 Acetaminophen [Tylenol 325 mg Tablet] 650 mg PO Q4HP PRN tablet 10/15/19 Aspirin [Aspirin 81 mg Chewable Tablet] 81 mg PO DAILY tab.chew 10/15/19 Bisoprolol/Hydrochlorothiazide [Bisoprolol-Hctz 10-6.25 mg Tab] 0.5 tab PO .QHS 10/15/19 Docusate Sodium [Colace 100 mg Capsule] 100 mg PO BID capsule 10/15/19 Famotidine [Pepcid 20 mg Tablet] 20 mg PO Q12 tablet 10/15/19 Fluticasone/Vilanterol [Breo 100-25 Mcg Ellipta 14 Dose/Dpi] 1 inh IH DAILY inhaler 10/15/19 Tramadol HCl [Ultram 50 mg Tablet] 50 mg PO Q6HP PRN #15 tablet 10/15/19 Additional Information: Continue trial of inhaler therapy for suspected COPD/asthma History of Present Illiness History of Present Illness: YE ALVAREZ is a 79 year old female with a past medical history of dyslipidemia, coronary artery disease and hypertension. Presents after a fall while moving furniture she landed on the floor without head injury but has had subsequent intractable pain unable to stand. She is brought to the emergency department by EMS and found to have a nondisplaced pelvic fracture. She received symptomatic management referred to the hospitalist for admission. She denies palpitations, chest pain, shortness of breath but admits nausea with vomiting x1. She denies recent change in [id number] or prescribed medication regiment and is otherwise felt well Hospital Course Hospital Course: (1) Fracture of pubic ramus Qualifiers: Encounter type: initial encounter Fracture type: closed Laterality: unspecified laterality Qualified Code(s): S32.599A - Other specified fracture of unspecified pubis, initial encounter for closed fracture Is this a current diagnosis for this admission?: Yes Plan: No left side involved. Patient was evaluated by orthopedics who states that no operation is needed. Weightbearing as tolerated. She was unfortunately not able to do much with physical therapy today and she will require SNF for short-term rehab. Limited options for pain control as patient seems to get very nauseated whenever she takes any narcotic/opioid medication. I have switched her meds a couple times now. I will stop all opioid medications while continue tramadol which she has tolerated. I will add gentle doses of IV Toradol as needed for breakthrough pain. GI prophylaxis with pepcid. Continue daily PT 10/14/2019 Awaiting COVID screening. Patient has been accepted at [facility]. Continue analgesia and physical therapy 10/15/2019 Transferred to [facility] for aggressive therapy to maximize recovery. Anticipated stay less than 30 days. (2) Nausea & vomiting Qualifiers: Vomiting type: unspecified Vomiting Intractability: unspecified Qualified Code(s): R11.2 - Nausea with vomiting, unspecified Is this a current diagnosis for this admission?: Yes Plan: Patient seems to have severe nausea with some episodes of vomiting whenever she takes any narcotic medication. Daughter states that people in her family are very sensitive to narcotics. Nausea & vomiting seem to have only started while patient was in the hospital and has occurred after receiving morphine, fentanyl and Percocet. I have adjusted as regimen as demonstrated above and will use only non-opioid alternatives for pain control. Continue Zofran and add IV Phenergan. Check electrolytes. 10/14/2019 The intravenous Toradol and Phenergan seem to be working well. Continue same. 10/15/2019 She is feeling better. May need to develop an oral protocol although she is less nauseous. (3) Elevated troponin Is this a current diagnosis for this admission?: Yes Plan: I agree that this is likely secondary to fall and mild rhabdomyolysis sub sequently. CK is mildly elevated. Troponin seems to have peaked at 0.247 and trended down. EKG shows no ischemic changes whatsoever. 10/14/2019 Troponin is trending down. Very likely noncardiac in origin. 10/15/2019 No longer trending troponins (4) Fall Qualifiers: Encounter type: initial encounter Qualified Code(s): W19.XXXA - Unspecified fall, initial encounter Is this a current diagnosis for this admission?: Yes Plan: PT 10/14/2019 Patient will need gait training and strengthening. Accepted at [place]. (5) Gait disorder Is this a current diagnosis for this admission?: Yes Plan: Follow-up physical therapy evaluation 10/14/2019 Secondary to fracture. Continue aggressive therapy at [facility]. (6) asthma The patient has a history of asthma. She has been having a cough and reports occasional shortness of breath. We discussed this and she is willing to trial a short course of inhaler therapy. Brio Ellipta has been ordered. Physical Exam Vital Signs: Temp Pulse Resp BP Pulse Ox 97.9 F 84 17 132/63 H 97 10/15/19 07:38 10/15/19 07:38 10/15/19 07:38 10/15/19 07:38 10/15/19 07:38 Intake & Output 10/14/19 10/15/19 10/16/19 06:59 06:59 06:59 Intake Total 360 680 Output Total 735 1125 Balance -375 -445 Weight 72.9 kg 72.9 kg General appearance: PRESENT: no acute distress, well-developed Respiratory exam: PRESENT: clear to auscultation eros, symmetrical, unlabored. ABSENT: rales, rhonchi, tachypnea, wheezes Cardiovascular exam: PRESENT: RRR, +S1, +S2 GI/Abdominal exam: PRESENT: normal bowel sounds, soft. ABSENT: distended, guarding, tenderness Neurological exam: PRESENT: alert, awake, oriented to person, oriented to place, oriented to time, oriented to situation, CN II-XII grossly intact. ABSENT: altered Psychiatric exam: PRESENT: flat affect. ABSENT: agitated, anxious Focused psych exam: ABSENT: delusional, paranoid, restlessness Skin exam: PRESENT: dry, normal color, warm. ABSENT: rash Results Laboratory Results: WBC 8.2 10^3/uL (4.0-10.5) 10/14/19 04:47 RBC 3.87 10^6/uL (3.72-5.28) 10/14/19 04:47 Hgb 12.3 g/dL (12.0-15.5) 10/14/19 04:47 Hct 36.5 % (36.0-47.0) 10/14/19 04:47 MCV 94 fl (80-97) 10/14/19 04:47 MCH 31.7 pg (27.0-33.4) 10/14/19 04:47 MCHC 33.6 g/dL (32.0-36.0) 10/14/19 04:47 RDW 13.7 % (11.5-14.0) 10/14/19 04:47 Plt Count 209 10^3/uL (150-450) 10/14/19 04:47 Lymph % (Auto) 27.1 % (13-45) 10/11/19 15:48 Darke % (Auto) 7.4 % (3-13) 10/11/19 15:48 Eos % (Auto) 2.8 % (0-6) 10/11/19 15:48 Baso % (Auto) 0.7 % (0-2) 10/11/19 15:48 Absolute Neuts (auto) 5.8 10^3/uL (1.7-8.2) 10/11/19 15:48 Absolute Lymphs (auto) 2.6 10^3/uL (0.5-4.7) 10/11/19 15:48 Absolute Monos (auto) 0.7 10^3/uL (0.1-1.4) 10/11/19 15:48 Absolute Eos (auto) 0.3 10^3/uL (0.0-0.6) 10/11/19 15:48 Absolute Basos (auto) 0.1 10^3/uL (0.0-0.2) 10/11/19 15:48 Seg Neutrophils % 62.0 % (42-78) 10/11/19 15:48 Sodium 136.8 mmol/L (137-145) L 10/14/19 04:47 Potassium 4.5 mmol/L (3.6-5.0) 10/14/19 04:47 Chloride 102 mmol/L (98-107) 10/14/19 04:47 Carbon Dioxide 29 mmol/L (22-30) 10/14/19 04:47 Anion Gap 6 (5-19) 10/14/19 04:47 BUN 20 mg/dL (7-20) 10/14/19 04:47 Creatinine 0.76 mg/dL (0.52-1.25) 10/14/19 04:47 Est GFR ( Amer) > 60 (>60) 10/14/19 04:47 Est GFR (MDRD) Non-Af > 60 (>60) 10/14/19 04:47 Glucose 108 mg/dL (75-110) 10/14/19 04:47 Calcium 8.6 mg/dL (8.4-10.2) 10/14/19 04:47 Magnesium 1.9 mg/dL (1.6-2.3) 10/14/19 04:47 Total Bilirubin 0.4 mg/dL (0.2-1.3) 10/11/19 15:48 Direct Bilirubin 0.0 mg/dL (0.0-0.4) 10/11/19 15:48 Neonat Total Bilirubin Not Reportable 10/11/19 15:48 Neonat Direct Bilirubin Not Reportable 10/11/19 15:48 Neonat Indirect Bili Not Reportable 10/11/19 15:48 AST 26 U/L (14-36) 10/11/19 15:48 ALT 18 U/L (<35) 10/11/19 15:48 Alkaline Phosphatase 64 U/L (38-126) 10/11/19 15:48 Creatine Kinase 345 U/L (30-135) H 10/12/19 12:45 CK-MB (CK-2) 4.02 ng/mL (<4.55) 10/12/19 12:45 Troponin I 0.174 ng/mL 10/12/19 12:45 NT-Pro-B Natriuret Pep 1870 pg/mL (<450) H 10/12/19 01:31 Total Protein 7.0 g/dL (6.3-8.2) 10/11/19 15:48 Albumin 3.9 g/dL (3.5-5.0) 10/11/19 15:48 Urine Color STRAW 10/11/19 18:15 Urine Appearance CLEAR 10/11/19 18:15 Urine pH 6.0 (5.0-9.0) 10/11/19 18:15 Ur Specific [place] 1.010 10/11/19 18:15 Urine Protein NEGATIVE mg/dL (NEGATIVE) 10/11/19 18:15 Urine Glucose (UA) NEGATIVE mg/dL (NEGATIVE) 10/11/19 18:15 Urine Ketones NEGATIVE mg/dL (NEGATIVE) 10/11/19 18:15 Urine Blood SMALL (NEGATIVE) H 10/11/19 18:15 Urine Nitrite (Reflex) NEGATIVE (NEGATIVE) 10/11/19 18:15 Urine Bilirubin NEGATIVE (NEGATIVE) 10/11/19 18:15 Urine Urobilinogen NEGATIVE mg/dL (<2.0) 10/11/19 18:15 Leukocyte Esterase Rfl NEGATIVE (NEGATIVE) 10/11/19 18:15 Urine RBC (Auto) 1 /HPF 10/11/19 18:15 Urine WBC (Reflex) < 1 /HPF 10/11/19 18:15 Squamous Epi Cells Auto <1 /HPF 10/11/19 18:15 Urine Mucus (Auto) RARE /LPF 10/11/19 18:15 Urine Ascorbic Acid NEGATIVE (NEGATIVE) 10/11/19 18:15 COVID-19 Source NASOPHARYNGEAL 10/12/19 16:46 COVID-19 (HELEN) NOT DETECTED 10/12/19 16:46 10/12/19 10/12/19 10/12/19 01:31 07:29 12:45 CK-MB (CK-2) 5.09 H 4.87 H 4.02 Troponin I 0.200 0.247 0.174 NT-Pro-B Natriuret Pep 1870 H Impressions: Abdomen/Pelvis CT 10/11/19 00:00 IMPRESSION: No acute intrathoracic findings. IMPRESSION: Nondisplaced left superior and inferior pubic ramus fractures. No acute intraabdominal/pelvic findings. Hip X-Ray 10/11/19 00:00 IMPRESSION: No identifiable acute osseous abnormality of the left hip. If there is persisting concern for occult fracture, consider CT. Chest CT 10/11/19 18:40 IMPRESSION: No acute intrathoracic findings. IMPRESSION: Nondisplaced left superior and inferior pubic ramus fractures. No acute intraabdominal/pelvic findings. Plan Health Concerns: Patient complains of cough. History of asthma. Trial of inhaler. Acid reflux can also cause a cough. She is already on famotidine. Plan of Treatment: Transfer to [facility] for aggressive therapy. Goals: Independent mobilization and increased exercise capacity Time Spent: Greater than 30 Minutes Stroke Is this a Stroke Patient?: No Acute Heart Failure - Is this a Heart Failure Patient?: No
[2019-10-15 12:58] VITALS: BP 139/63
== END 2019-10-15 13:53 | DRG 536 ==
LOC: ER 15:28 → EH 20:10 → 4W 22:01 → OBSVTOIN 10-12 13:53
PROVIDERS: ADMIT Internal Medicine; ATTEND Hospitalist
DX: S32.512A Fracture of superior rim of left pubis, initial encounter for closed fracture (principal); M62.82 Rhabdomyolysis; S32.592A Other specified fracture of left pubis, initial encounter for closed fracture; I10 Essential (primary) hypertension; J45.909 Unspecified asthma, uncomplicated; R26.89 Other abnormalities of gait and mobility; W19.XXXA Unspecified fall, initial encounter; Y93.89 Activity, other specified; Y92.018 Other place in single-family (private) house as the place of occurrence of the external cause; I25.2 Old myocardial infarction; Z79.82 Long term (current) use of aspirin; Z79.899 Other long term (current) drug therapy; Z03.818 Encounter for observation for suspected exposure to other biological agents ruled out
CPT/HCPCS: 36415; 51702; 71250; 74176; 80048; 80053; 81001; 82550; 82553; 83735; 83880; 84484; 85025; 85027; 87635; 93005; 93010; 96374; 96375; 96376; 99285; C9803; G0378; J1644; J1885; J2270; J2405; J2550; J3010; J3490; J7030